=== PATIENT | male | born 2000 | race Two or more races ===

== ENCOUNTER 2020-04-19 16:36 | Outpatient (CLI) | payer OTHER | END 2020-04-19 16:47 | disposition home or self-care (01) | LOC: LAB 16:36 | PROVIDERS: ATTEND General Practice | DX: J11.1 Influenza due to unidentified influenza virus with other respiratory manifestations (principal); Z20.828 Contact with and (suspected) exposure to other viral communicable diseases; R07.0 Pain in throat; R50.9 Fever, unspecified; R53.81 Other malaise; Z11.59 Encounter for screening for other viral diseases ==